=== PATIENT | male | born 1990 | race Two or more races ===

== ENCOUNTER 2024-01-12 09:29 | Emergency (ER) | payer MEDICAID, OTHER ==
[~2024-01-12] VITALS: Ht 167.6 cm; Wt 93.7 kg
[2024-01-12 09:58] VITALS: BP 149/84; PULSE 89; RESP 16; TEMP 98.2; O2SAT 96
[2024-01-12] MEDS ORDERED: TRAM-626 PO (10:26)
[2024-01-12] MEDS ORDERED: CLIN1CAP70 PO (10:26)
== END 2024-01-12 10:30 | disposition home or self-care (01) ==
LOC: ER 09:29
DX: K04.7 Periapical abscess without sinus (principal)

== ENCOUNTER 2024-05-01 17:59 | Emergency (ER) | payer MEDICAID ==
[~2024-05-01] VITALS: Ht 167.6 cm; Wt 95.0 kg
[~2024-05-01 17:59] MED LIST: CLIN1CAP70 PO; TRAM-626 PO
[2024-05-01 18:10] VITALS: BP 159/90; PULSE 94; RESP 18; O2SAT 96
[2024-05-01] MEDS ORDERED: TRAM50TA2 PO (21:20)
[2024-05-01] MEDS: traMADol HCL 50 MG TAB PO ONE (21:20)
== END 2024-05-01 21:34 | disposition home or self-care (01) ==
LOC: ER 17:59
DX: T23.102A Burn of first degree of left hand, unspecified site, initial encounter (principal); T20.17XA Burn of first degree of neck, initial encounter; M54.50 Low back pain, unspecified; G89.29 Other chronic pain; Z88.6 Allergy status to analgesic agent; X19.XXXA Contact with other heat and hot substances, initial encounter; Y93.89 Activity, other specified; Y92.89 Other specified places as the place of occurrence of the external cause; Y99.8 Other external cause status